=== PATIENT | female | born 1955 | race African-American/Black ===

== ENCOUNTER 2018-04-10 14:13 | Emergency (ER) | payer OTHER, MEDICAID ==
[~2018-04-10] VITALS: Ht 162.6 cm; Wt 70.3 kg
[~2018-04-10 14:13] MED LIST: ALLO300T2 PO; ALPR0.255 PO; ASPI81TA53 PO; CARV25TA55 PO; FURO20TA PO; GABA300C10 PO; HYDR-3546 OR; INSU75IN2 SUBCUT; LEVO500T21 PO; LOVA40TA72 PO; METH500T6 PO; OMEP20TA PO
[2018-04-10] MEDS ORDERED: SODIUM CHLORIDE 0.9% 1,000 ML IV ONE (14:33)
[2018-04-10] MEDS ORDERED: ACETAMINOPHEN 325 MG TAB PO ONE (15:15)
[2018-04-10 15:16] LABS: Basophils # (auto) 0 uL; Basophils % (auto) 0.5 % (0.0-2.0); Eosinophils # (auto) 0.1 uL; Eosinophils % (auto) 1.3 % (0.0-7.0); Hematocrit 30.7 % (36.0-46.0); Hemoglobin 10.3 g/dL (12.2-16.2); Lymphocytes # (auto) 2.1 uL; Lymphocytes % (auto) 23.7 % (10.0-50.0); Mean Corpuscular Hemoglobin 29.5 pg (28.0-32.0); Mean Corpuscular Hgb Conc. 33.5 g/dL (32.0-36.0); Monocytes # (auto) 1.2 uL; Neutrophils # (auto) 5.3 uL; Neutrophils % (auto) 60.5 % (37.0-80.0); Nucleated Red Blood Cells % 0.1 %; Platelet Count (auto) 349 10^3/uL (140-450); Red Blood Cells 3.49 10^6/uL (4.0-5.20); White Blood Cell 8.7 10^3/uL (4.4-10.8)
[2018-04-10 15:23] LABS: Alanine Aminotransferase 55 U/L (13-56); Albumin 2.5 g/dL (3.4-5.0); Alkaline Phosphatase 481 U/L (45-117); Anion Gap 6 (5-15); Aspartate Aminotransferase 117 U/L (15-37); BUN/Creatinine Ratio 15.3; Bilirubin, Total 2.1 mg/dL (0.2-1.0); Blood Urea Nitrogen 20 mg/dL (7-18); Calcium 8.6 mg/dL (8.5-10.1); Carbon Dioxide 23 mmol/L (21-32); Chloride 105 mmol/L (98-107); GFR African American 52 mL/min; GFR Non-African American 43 mL/min; Glucose 240 mg/dL (74-106); Potassium 4.3 mmol/L (3.5-5.1); Sodium 134 mmol/L (136-145); Total Protein 7.1 g/dL (6.4-8.2)
[2018-04-10 15:29] LABS: Red Cell Distribution Width 21.8 % (11.8-14.3)
[2018-04-10] MEDS ORDERED: ONDANSETRON HCL 4 MG/2 ML VIAL IV ONE (17:00)
[2018-04-10] MEDS ORDERED: MORPHINE SULFATE 4 MG/ML SYR/VIAL IV ONE (17:00)
[2018-04-10] MEDS ORDERED: IBUPROFEN 600 MG TAB PO ONE (17:00)
[2018-04-10] MEDS ORDERED: DEXAMETHASONE SOD PHOS 10MG/1ML VIAL INJ IV ONE (17:30)
[2018-04-10 18:11] LABS: Urine Bacteria NONE SEEN /hpf (None Seen); Urine Blood Negative /uL (Negative); Urine Specific Gravity 1.008 (1.001-1.035); Urine WBC 9 /hpf (0 - 5)
[2018-04-10 23:45] VITALS: BP 166/72
[2018-04-11] MEDS ORDERED: MORPHINE SULF INJ 2 MG/ML SYRINGE 1ML ONE (00:06)
[2018-04-11] MEDS ORDERED: MORPHINE SULF INJ 2 MG/ML SYRINGE 1ML IV ONE (00:15)
== END 2018-04-11 00:14 | disposition short-term general hospital (02) ==
LOC: ER 14:13 → EDBD 14:13 → ER 04-11 00:14
DX: C50.919 Malignant neoplasm of unspecified site of unspecified female breast (principal); G93.6 Cerebral edema; E11.9 Type 2 diabetes mellitus without complications; E78.5 Hyperlipidemia, unspecified; I10 Essential (primary) hypertension; Z79.82 Long term (current) use of aspirin; Z79.899 Other long term (current) drug therapy; Z90.710 Acquired absence of both cervix and uterus
CPT/HCPCS: 36415; 70450; 80053; 81001; 83735; 84484; 85025; 93005; 94761; 96374; 96375; 96376; 99285; A6257; J1100; J2270; J2405; J7030